=== PATIENT | male | born 1980 | race Caucasian/White ===

== ENCOUNTER → 2021-04-01 17:54 | Outpatient (CLI) | payer MEDICAID, SELFPAY | PROVIDERS: Visit Provider Family Medicine | DX: N23 Unspecified renal colic (principal) | CPT/HCPCS: 87086 ==

== ENCOUNTER → 2021-04-14 10:38 | Outpatient (CLI) | payer MEDICAID, SELFPAY ==
--- NOTE | 2021-04-14 10:38 | CT_ITS ---
PROCEDURE: CT ABDOMEN PELVIS WO CON CLINICAL INDICATION: bilateral flank pain COMPARISON: No exams were available for comparison TECHNIQUE: Axial images obtained with sagittal and coronal reformats. All CT scans at the facility use one or more dose reduction, viz: automated exposure control, ma/kV adjustment per patient size (including targeted exams where dose is matched to indication, i.e. head), or iterative reconstruction technique. FINDINGS: LOWER THORAX: No acute finding ABDOMEN & PELVIS: The liver, adrenal glands, and pancreas has an unremarkable appearance. There has been a prior cholecystectomy. A nonspecific hypodensity is present in the inferior aspect of the spleen at 12 mm. No renal or ureteral calculi. No hydronephrosis. No intestinal obstruction or free air. Prior appendectomy. No evidence of diverticulitis. No acute bony findings. IMPRESSION: No acute finding. Nonspecific hypodense nodule along the inferior aspect of the spleen. This could be due to small hemangioma. Six-month follow-up without and with contrast or MRI with hemangioma protocol may confirm short term stability. Dictated by: Vipul Randolph MD 04/15/2021 10:51 Vipul Randolph MD in OV 04/15/2021 10:51
== END ==
PROVIDERS: PCP Family Medicine; Visit Provider Family Medicine
DX: R10.9 Unspecified abdominal pain (principal)
CPT/HCPCS: 74176

== ENCOUNTER → 2021-04-21 14:44 | Outpatient (CLI) | payer MEDICAID, SELFPAY ==
[2021-04-21 15:11] LABS: HCG Qualitative, Serum Negative (Negative)
[2021-04-25 08:40] LABS: HSV 2 IgG, Type Spec <0.91 index (0.00-0.90)
[2021-04-25 22:07] LABS: Neisseria gonorrhoeae, NAA Negative (Negative)
[2021-04-26 06:19] LABS: HIV Screen 4th Generation wRfx Non Reactive (Non Reactive); Hep A Ab, IgM Negative (Negative); Hepatitis B Core Antibody IgM Negative (Negative); Hepatitis B Surface Antigen Negative (Negative); Hepatitis C Antibody >11.0 s/co ratio (0.0-0.9)
[2021-04-26 10:25] LABS: Rapid Plasma Reagin Ab Titer Non Reactive (NonRea<1:1)
== END ==
PROVIDERS: Visit Provider Family Medicine
DX: B00.9 Herpesviral infection, unspecified (principal)
CPT/HCPCS: 80074; 84703; 86592; 86695; 86703; 86790; 87491; 87591; G0432

== ENCOUNTER → 2021-12-02 10:06 | Outpatient (CLI) | payer MEDICAID, SELFPAY ==
[2021-12-02 18:51] LABS: Adenovirus,PCR Not Detected (NotDetected); Bordetella Pertussis Not Detected (NotDetected); Chlamydophila Pneumoniae, PCR Not Detected (NotDetected); Coronavirus 19, PCR Not Detected (NotDetected); Coronavirus 229E Not Detected (NotDetected); Coronavirus NL63 Not Detected (NotDetected); Coronavirus OC43 Not Detected (NotDetected); Coronovirus HKU1,PCR Not Detected (NotDetected); Human Metapneumovirus Not Detected (NotDetected); Influenza A, PCR Not Detected (NotDetected); Influenza AH1, 2009 Not Detected (NotDetected); Influenza AH1, PCR Not Detected (NotDetected); Influenza AH3,PCR Not Detected (NotDetected); Influenza B, PCR Not Detected (NotDetected); MANUAL DIFFERENTIAL MANUAL DIFFERENTIAL (MANUAL DIFF); Mycoplasma Pneumoniae, PCR Not Detected (NotDetected); Parainfluenza 1, PCR Not Detected (NotDetected); Parainfluenza 2, PCR Not Detected (NotDetected); Parainfluenza 3, PCR Not Detected (NotDetected); Parainfluenza 4, PCR Not Detected (NotDetected); Respiratory Syncytial Virus Not Detected (NotDetected); Rhinovirus/Enterovirus Not Detected (NotDetected)
[2021-12-02 19:02] LABS: Basophils # 0.1 K/mm3 (0-0.2); Basophils % 0.8 % (0.1-2.0); Eosinophils # 0.2 K/mm3 (0.0-0.4); Eosinophils % 2.4 % (0.1-12.0); Hemoglobin 12.7 g/dL (14.1-18.0); Lymphocytes # 3.5 K/mm3 (0.7-4.5); Lymphocytes % 44.7 % (10-50); Mean Corpuscular HGB Conc 32.6 g/dL (31.8-35.4); Mean Corpuscular Hemoglobin 30.2 pg (27.0-31.2); Mean Corpuscular Volume 92.5 fl (80-94); Mean Platelet Volume 9.5 fl (7.4-10.4); Monocytes # 0.5 K/mm3 (0.1-1.0); Monocytes % 6.8 % (1.7-9.3); Neutrophils # 3.6 K/mm3 (1.8-7.8); Neutrophils % 45.4 % (37.0-80.0); Platelet Count 214 K/mm3 (142-424); Red Blood Count 4.21 M/mm3 (4.60-6.20); Red Cell Distribution Width 13.8 % (11.5-17.5); White Blood Count 7.9 K/mm3 (4.8-10.8)
[2021-12-02 19:49] LABS: Eosinophils % 2 % (0-3); Lymphocytes % 43 % (10-50); Monocytes % 6 % (2-9); Neutrophils % 48 % (42-76); Platelet Estimate Normal; RBC Morphology Normal; Total Cells Counted 100
[2021-12-04 10:08] LABS: Antistreptolysin O Ab 34.1 IU/mL (0.0-200.0)
== END ==
PROVIDERS: PCP Family Medicine; Visit Provider Family Medicine
DX: J02.9 Acute pharyngitis, unspecified (principal); R05.1 Acute cough; R09.89 Other specified symptoms and signs involving the circulatory and respiratory systems; Z20.822 Contact with and (suspected) exposure to COVID-19
CPT/HCPCS: 85007; 85014; 85018; 85048; 85049; 86060; 87581; 87632; 87798; C9803; U0003; U0005

== ENCOUNTER 2022-03-25 11:46 | Emergency (ER) | payer MEDICAID, SELFPAY ==
[2022-03-25 13:40] VITALS: BP 121/75; PULSE 65; RESP 18; TEMP 36.6; O2SAT 98; BMI 27.4
--- NOTE | 2022-03-25 14:16 | EXP.UTC ---
Discharge Plan Disposition Patient Disposition: Home, Self-Care Condition: Good Prescriptions Prescriptions: New guaifenesin [Mucinex] 600 mg tablet extended release 12hr 600 mg PO BID PRN (Reason: cough) Qty: 20 0RF azithromycin [Zithromax Z-Daniel] 250 mg tablet See Rx Instructions .ROUTE .COMPLEX 5 Days Qty: 6 0RF Rx Instructions: For 250 mg dose pack: take 500 mg today (day 1), then 250 mg for 4 days (days 2-5) prednisone [prednisone] 20 mg tablet 20 mg PO BID 5 Days Qty: 10 0RF No Action clindamycin phosphate 1 % gel 1 applic topical BID Qty: 60 10RF prednisone 20 mg tablet 20 mg PO DAILY PRN (Reason: rash) Qty: 20 1RF ropinirole 2 mg tablet 2 mg PO HS Qty: 60 4RF Rx Instructions: administer 1-3 hours before bedtime for restless leg fluticasone propionate 50 mcg/actuation spray,suspension 1 spray NS DAILY Qty: 16 2RF Rx Instructions: administer into each nostril fexofenadine [Allergy Relief (fexofenadine)] 180 mg tablet 180 mg PO DAILY Qty: 30 2RF lisinopril 20 mg tablet 20 mg PO DAILY Qty: 90 3RF trazodone 150 mg tablet 150 mg PO HS venlafaxine 37.5 mg tablet 37.5 mg PO DAILY paliperidone 9 mg tablet extended release 24hr 9 mg PO DAILY divalproex 500 mg tablet extended release 24 hr See Rx Instructions .ROUTE .COMPLEX Qty: 60 2RF Dose Instruction: TAKE 1 TABLET BY MOUTH TWICE DAILY Rx Instructions: TAKE 1 TABLET BY MOUTH TWICE DAILY Referrals Follow up/Referrals: Yves Gill MD [Primary Care Provider] - See instructions Clinical Impressions Clinical Impression: Sinusitis, Bronchitis Instructions Patient Instructions: DI for Sinusitis, Sinusitis, Acute Bronchitis Discharge ED Provider: Casie Carrington [facility] HPI General Stated complaint: cough, congestion, runny nose Mode of Arrival: Ambulatory Source of Information: Patient Limitations: No Limitations Time Seen by Provider: 03/25/22 14:16 Description of Symptoms (Recalled from Triage Doc. by RN): PATIENT C/O CHEST CONGESTION, RUNNY NOSE, AND COUGH X 10 DAYS HEENT Symptoms (Recalled from RN notes): Yes Resp Symptoms (Recalled from RN notes): Yes Skin Symptoms (Recalled from RN notes): No MS Symptoms (Recalled from RN notes): No Functional Status (Recalled from RN notes): WNL History of Present Illness Provider Complaint: Patient states that he has been having cough, sinus congestion and pressure along with chest congestion and at times productive cough States that he has been sick about 10 days and not got any better so he came in Related Data Home Medications Medication Instructions Recorded Confirmed paliperidone 9 mg tablet,extended 9 mg PO DAILY 05/26/20 12/29/21 release 24 hr trazodone 150 mg tablet 150 mg PO HS 05/26/20 12/29/21 venlafaxine 37.5 mg tablet 37.5 mg PO DAILY 05/26/20 12/29/21 Previous Rx's Medication Instructions Recorded divalproex 500 mg tablet,extended See Rx Instructions .Route 08/20/20 release 24 hr .COMPLEX #60 tabs lisinopril 20 mg tablet 20 mg PO DAILY #90 tabs 10/04/21 fexofenadine 180 mg tablet 180 mg PO DAILY #30 tabs 12/06/21 (Allergy Relief (fexofenadine)) fluticasone propionate 50 1 spray intranasal DAILY allergic 12/06/21 mcg/actuation nasal rhinitis #16 grams spray,suspension clindamycin phosphate 1 % topical 1 applic topical BID #60 grams 12/29/21 gel prednisone 20 mg tablet 20 mg PO DAILY PRN rash #20 tabs 12/29/21 ropinirole 2 mg tablet 2 mg PO HS #60 tabs 12/29/21 azithromycin 250 mg tablet See Rx Instructions PO .COMPLEX 5 03/25/22 (Zithromax Z-Daniel) days #6 tabs guaifenesin 600 mg tablet, 600 mg PO BID PRN cough #20 tabs 03/25/22 extended release 12 hr (Mucinex) prednisone 20 mg tablet 20 mg PO BID 5 days #10 tabs 03/25/22 Allergies Allergy/AdvReac Type Severity Reaction Status Date / Time amoxicillin AdvReac Severe Rash Verified 12/29/21 09:30 Worker's Comp Is this a
[2022-03-25 14:33] VITALS: BP 121/75; PULSE 65; RESP 18; TEMP 36.6; O2SAT 98
== END 2022-03-25 14:51 | disposition home or self-care (01) ==
PROVIDERS: Emergency Provider Nurse Practitioner; PCP Family Medicine
DX: J40 Bronchitis, not specified as acute or chronic (principal); F32.9 Major depressive disorder, single episode, unspecified
CPT/HCPCS: 99212; G0463

== ENCOUNTER → 2022-05-01 10:10 | Outpatient (CLI) | payer MEDICAID, SELFPAY ==
[2022-05-01 13:21] LABS: Coronavirus 19, PCR Not Detected (NotDetected); Influenza A, PCR Not Detected (NotDetected); Influenza B, PCR Not Detected (NotDetected)
== END ==
PROVIDERS: PCP Family Medicine; Visit Provider Family Medicine
DX: R05.9 Cough, unspecified (principal)
CPT/HCPCS: C9803; U0003; U0005

== ENCOUNTER 2022-05-30 10:01 | Day surgery (SDC) | payer MEDICAID, SELFPAY ==
[2022-05-29 10:10] VITALS: BMI 29.0
[2022-05-30 10:20] VITALS: BP 119/72; PULSE 72; RESP 18; TEMP 36.3; O2SAT 95
[2022-05-30 11:39] VITALS: O2SAT 99
--- NOTE | 2022-05-30 11:55 | EXP.ANES.CKL ---
[facility] Disclaimer: The information contained in this section may have been updated after the patient was seen, as this information can be updated by other users. Medical History Depression Eczema Hypertension Seizure disorder Surgical History History of appendectomy History of cholecystectomy Family History Other Colon cancer Family history of asthma Family history of cancer Family history of diabetes mellitus type II Family history of stroke Social History Smoking Status: Former smoker quit date: 06/01/18 alcohol intake: former substance use type: former substance user and methamphetamine current occupational status: employed Travel in the last 8 weeks: None household members: family housing: house lives independently: Yes marital status: education level: high school caffeine: Yes special kyaw needs: No agree to transfusion: No do you feel safe at home: Yes victim of physical abuse: No victim of emotional abuse: No victim of sexual abuse: No would you like helpful sources: No [facility] Anesthesia Checklist Patient Identification Patient Identification: Arm Band Structural Data Admitted From: Home Planned Operative Procedure/s: colonoscopy Consent for Planned Operative Procedure(s) Verified: Yes Verified Documents: Surgical Consent and History and Physical NPO Status Verified Time NPO: 00:00 Additional verifications Anesthesia Reactions: No Airway Assessment C-Spine Mobility Assessed: Yes TMJ Mobility Assessed: Yes Neurological Assessment Level of Consciousness: Awake and Alert Anesthesia Plan Anesthesia Risk discussed: Yes Anesthesia Plan: Verified ASA Class: II Anesthesia Type: MAC
[2022-05-30 12:20] VITALS: BP 84/42; PULSE 56; RESP 16; TEMP 36.5; O2SAT 95
--- NOTE | 2022-05-30 12:20 | HMH.SCOPE ---
Procedure: Date: 05/30/22 Patient Date of :: 1980 Procedure Performed:: Colonoscopy with polypectomy Indications:: Family history of colon cancer Performing Provider:: Harvinder Sanchez MD Referring Provider:: . Sedation:: Monitored anesthesia care Procedure:: After informed consent was obtained the patient was taken to the endoscopy suite. Sedation ensued after the patient was transferred to the left lateral decubitus position. Pulse, blood pressure, and oxygen saturation were monitored throughout the procedure. Digital rectal exam revealed no significant abnormality. The colonoscope was placed in position. The entire colon was evaluated. The colonoscope was carefully removed and the patient was transferred to recovery in stable condition. Please see findings and specimens below for detail. Findings:: Bowel preparation [id number] Moderate spasticity/lack of relaxation Polyp (see specimens) Specimens:: Large complex pedunculated polyp at 60 cm (hot snare) Recommendations:: Timing of repeat colonoscopy is pending pathology but likely be around 1-2 years secondary to size/nature of polyp, limited bowel preparation, spasticity/lack of relaxation, and significant family history. Complications:: No immediate Estimated blood obtained (mL): 1
[2022-05-30 12:30] VITALS: BP 101/51; PULSE 62; RESP 17; O2SAT 96
[2022-05-30 12:40] VITALS: BP 111/71; PULSE 61; RESP 16; O2SAT 98
[2022-05-30 12:50] VITALS: BP 111/71; PULSE 62; RESP 16; TEMP 36.7; O2SAT 97
== END 2022-05-30 12:50 | disposition home or self-care (01) ==
PROVIDERS: PCP Family Medicine; Visit Provider Surgery
PROC: 0DJD8ZZ Inspection of Lower Intestinal Tract, Via Natural or Artificial Opening Endoscopic (ICD-10-PCS; CPT 45385; principal; 2022-05-30 11:30)
DX: Z12.11 Encounter for screening for malignant neoplasm of colon (principal); Z80.0 Family history of malignant neoplasm of digestive organs; D12.6 Benign neoplasm of colon, unspecified; Z79.899 Other long term (current) drug therapy
CPT/HCPCS: 45385

== ENCOUNTER → 2022-06-20 16:23 | Outpatient (CLI) | payer MEDICAID, SELFPAY ==
[2022-06-20 16:05] LABS: Chol/HDL Ratio 3.8 (1-3.5); Cholesterol 234 mg/dl (140-200); HDL Cholesterol 62 mg/dl (40-60); Triglycerides 249 mg/dl (30-150); VLDL Cholesterol 50 mg/dL (0-40)
== END ==
PROVIDERS: PCP Family Medicine; Visit Provider Family Medicine
DX: D12.6 Benign neoplasm of colon, unspecified (principal)
CPT/HCPCS: 80061

== ENCOUNTER → 2022-09-11 23:28 | Outpatient (CLI) | payer MEDICAID, SELFPAY ==
[2022-09-11 18:20] LABS: Adenovirus,PCR Not Detected (NotDetected); Bordetella Pertussis Not Detected (NotDetected); Chlamydophila Pneumoniae, PCR Not Detected (NotDetected); Coronavirus 19, PCR Not Detected (NotDetected); Coronavirus 229E Not Detected (NotDetected); Coronavirus NL63 Not Detected (NotDetected); Coronavirus OC43 Not Detected (NotDetected); Coronovirus HKU1,PCR Not Detected (NotDetected); Human Metapneumovirus Not Detected (NotDetected); Influenza A, PCR Not Detected (NotDetected); Influenza AH1, 2009 Not Detected (NotDetected); Influenza AH1, PCR Not Detected (NotDetected); Influenza AH3,PCR Not Detected (NotDetected); Influenza B, PCR Not Detected (NotDetected); Mycoplasma Pneumoniae, PCR Not Detected (NotDetected); Parainfluenza 1, PCR Not Detected (NotDetected); Parainfluenza 2, PCR Not Detected (NotDetected); Parainfluenza 3, PCR Not Detected (NotDetected); Parainfluenza 4, PCR Not Detected (NotDetected); Respiratory Syncytial Virus Not Detected (NotDetected); Rhinovirus/Enterovirus Not Detected (NotDetected)
== END ==
PROVIDERS: PCP Family Medicine; Visit Provider Family Medicine
DX: R53.83 Other fatigue (principal); R50.9 Fever, unspecified; J02.9 Acute pharyngitis, unspecified
CPT/HCPCS: 87581; 87632; 87635; 87798; C9803; U0003; U0005

== ENCOUNTER → 2023-01-12 11:15 | Outpatient (CLI) | payer MEDICAID, SELFPAY ==
[2023-01-12 18:02] LABS: Alanine Aminotransferase 35 U/L (12-78); Albumin/Globulin Ratio 1.4 (1.1-1.8); Alkaline Phosphatase 74 U/L (38-126); Anion Gap 18.1 mEq/L (5-15); Aspartate Amino Transferase 31 U/L (17-59); Bilirubin,Total 0.7 mg/dl (0.2-1.3); Blood Urea Nitrogen 16 mg/dl (9-20); Calcium 9.7 mg/dl (8.4-10.2); Carbon Dioxide 25 mmol/L (22.0-30.0); Chloride 101 mmol/L (98-107); Chol/HDL Ratio 3.9 (1-3.5); Cholesterol 177 mg/dl (140-200); Estimated Glomerular Filt Rate 106 ml/min (>60); GFR (African American) 128 ML/MIN (>60); Globulin 3.5 g/dL (1.3-3.2); Glucose 92 mg/dl (74-100); HDL Cholesterol 45 mg/dl (40-60); Potassium 4.1 mmoL/L (3.5-5.1); Sodium 140 mmol/L (136-145); Total Protein,Serum 8.5 g/dl (6.3-8.2); Triglycerides 98 mg/dl (30-150); VLDL Cholesterol 20 mg/dL (0-40)
[2023-01-12 18:05] LABS: Basophils % 0.3 % (0.1-2.0); Eosinophils % 0.4 % (0.1-12.0); Hematocrit 43.6 % (42.0-52.0); Hemoglobin 14.4 g/dL (14.1-18.0); Lymphocytes # 2.6 K/mm3 (0.7-4.5); Lymphocytes % 29.2 % (10-50); Mean Corpuscular Hemoglobin 28.5 pg (27.0-31.2); Mean Corpuscular Volume 86.3 fl (80-94); Mean Platelet Volume 9.7 fl (7.4-10.4); Monocytes # 0.5 K/mm3 (0.1-1.0); Neutrophils # 5.6 K/mm3 (1.8-7.8); Neutrophils % 64.1 % (37.0-80.0); Platelet Count 265 K/mm3 (142-424); Red Blood Count 5.05 M/mm3 (4.60-6.20); Red Cell Distribution Width 14.4 % (11.5-17.5); White Blood Count 8.8 K/mm3 (4.8-10.8)
[2023-01-12 18:13] LABS: Direct LDL Cholesterol 101.28 mg/dL (100-129)
[2023-01-12 18:24] LABS: Hemoglobin A1C 5.2 % (4.0-6.0)
[2023-01-14 11:18] LABS: Testosterone,Total 489 ng/dL (264-916)
== END ==
PROVIDERS: PCP Family Medicine; Visit Provider Family Medicine
DX: Z13.1 Encounter for screening for diabetes mellitus (principal); I10 Essential (primary) hypertension; R63.1 Polydipsia; R53.83 Other fatigue; Z83.3 Family history of diabetes mellitus; Z79.899 Other long term (current) drug therapy
CPT/HCPCS: 80053; 80061; 83036; 84403; 85025

== ENCOUNTER 2024-11-25 06:18 | Day surgery (SDC) | payer MEDICAID, SELFPAY ==
[2024-11-20 15:09] VITALS: BMI 29.0
[2024-11-25 06:32] VITALS: BMI 29.0
[2024-11-25 06:35] VITALS: BP 122/78; PULSE 68; RESP 18; TEMP 36.1; O2SAT 94
--- NOTE | 2024-11-25 06:46 | EXP.GEN.HP ---
HPI HPI HPI: Is a 44-year-old gentleman who presents for colonoscopy. Colonoscopy in April 2022 was somewhat complicated by [id number] bowel preparation and moderate lack of relaxation. A large complex pedunculated tubular adenoma at 60 cm was excised. [facility] Disclaimer: The information contained in this section may have been updated after the patient was seen, as this information can be updated by other users. Medical History (Updated 11/25/24 @ 06:49 by Harvinder Sanchez MD) Tubular adenoma of colon Seizure disorder Eczema Hypertension Depression Surgical History (Updated 11/25/24 @ 06:49 by Harvinder Sanchez MD) History of laparoscopic cholecystectomy History of laparoscopic appendectomy Family History Other Colon cancer Family history of asthma Family history of cancer Family history of diabetes mellitus type II Family history of stroke Social History (Updated 11/25/24 @ 06:36 by Shania Owens RN) Smoking Status: Former smoker tobacco type: cigarettes packs per day: 1 alcohol intake: former substance use type: former substance user and methamphetamine current occupational status: employed Travel in the last 8 weeks?: None household members: family housing: house lives independently: Yes marital status: education level: high school caffeine: Yes special kyaw needs: No agree to transfusion: No do you feel safe at home: Yes victim of physical abuse: No victim of emotional abuse: No victim of sexual abuse: No would you like helpful sources: No Have you lived/traveled outside [place] in past 30 days?: No Contact w/someone who lives/traveled outside US past 30 days?: No Exposure to someone with infectious disease in past 14 days?: No Do you have a fever (greater than 100.4 F or 38 C)?: No Have you tested positive for COVID-19?: No Exposed to someone with COVID-19 in past 14 days?: No Do you have a sore throat?: No Do you have a cough?: No Do you have any weakness?: No Are you experiencing any nausea/vomitting?: No Do you have any diarrhea?: No Are you experiencing any unusual bleeding?: No Do you have any muscle aches/pain?: No Do you have any abdominal pain?: No Are you experiencing loss of taste or smell?: No Other Medical History Have you received the Pneumonia Vaccine: No Review of Systems Review of Systems Review of systems:: pertinent systems reviewed and negative unless documented below Meds Home Medications and Allergies Home Medications ?Medication ?Instructions ?Recorded ?Confirmed ?Type trazodone 150 mg tablet 150 mg PO HS sleep 05/26/20 11/20/24 History buprenorphine 8 mg-naloxone 2 mg 1 tab sublingual DAILY 09/22/22 11/20/24 History sublingual tablet lisinopril 20 mg tablet 20 mg PO DAILY #90 tabs 01/12/23 11/20/24 Rx aripiprazole 10 mg tablet 10 mg PO DAILY 07/20/23 11/20/24 History fluticasone propionate 50 See Rx Instructions .Route 11/05/24 11/20/24 Rx mcg/actuation nasal .COMPLEX #16 mL spray,suspension bupropion HCl 150 mg 24 hr tablet, 150 mg PO DAILY 11/20/24 11/20/24 History extended release New Prescriptions to Start Prescriptions: Allergies Allergy/AdvReac Type Severity Reaction Status Date / Time amoxicillin AdvReac Severe Rash Verified 11/25/24 06:48 Exam Data for Last 24 hours Vital signs and Labs for Last 24 Hours: Temp Pulse Resp BP Pulse Ox O2 Del Method 97.0 F L 68 18 122/78 94 L Room Air 11/25/24 06:35 11/25/24 06:35 11/25/24 06:35 11/25/24 06:35 11/25/24 06:35 11/25/24 06:35 I & O for Last 24 hours: Intake & Output 11/22/24 11/23/24 11/24/24 11/25/24 11:59 11:59 11:59 11:59 Weight 220 lb Constitutional Constitutional: no acute distress *Routine HEENT Exam Head: Present normocephalic Eye: Present EOMI ENT: Present mucous membranes moist *Routine Neck Exam Neck: Present full ROM *Routine Respiratory Exam Respiratory: Absent respiratory distress *Routine Cardiovascular Exam Cardiovascular: Absent tachycardia *Routine Abdominal Exam Abdominal: Present soft *Routine Rectal Exam Rectal:: deferred *Routine Genitalia Exam Genitalia:: deferred *Routine Extremities Exam Extremities: Present full ROM *Routine Skin Exam Skin: Absent erythema *Routine Neurological Exam Neurological: Present alert Assessment and Plan *Assessment and plan (1) History of colon polyps: Status: Acute Category: Medical Code(s): Z86.0100 - Personal history of colon polyps, unspecified Plan: Colonoscopy today I have discussed the risks and benefits including, but not limited to: Bleeding Infection Damage to surrounding tissue Inherent risks of sedation The patient agrees to proceed.
[2024-11-25] MEDS: LACTATED RINGERS 1000ML 1,000 ML 25 ML IV (06:47)
--- NOTE | 2024-11-25 06:50 | HMH.SCOPE ---
Procedure: Date: 11/25/24 Patient Date of :: 1980 Procedure Performed:: Colonoscopy with polypectomy by means other than snare Indications:: History of colon polyps Note: Colonoscopy in April 2022 was somewhat complicated by [id number] bowel preparation and moderate lack of relaxation. A large complex pedunculated tubular adenoma at 60 cm was excised. Performing Provider:: Harvinder Sanchez MD Referring Provider:: . Sedation:: Monitored anesthesia care Procedure:: After informed consent was obtained the patient was taken to the endoscopy suite. Sedation ensued after the patient was transferred to the left lateral decubitus position. Pulse, blood pressure, and oxygen saturation were monitored throughout the procedure. Digital rectal exam revealed no significant abnormality. The colonoscope was placed in position. The entire colon was evaluated. The colonoscope was carefully removed and the patient was transferred to recovery in stable condition. Please see findings and specimens below for detail. Findings:: Bowel preparation moderate Moderate spasticity/lack of relaxation Hemorrhoidal tags Small polyp at 45 cm Specimens:: Polyp at 45 cm (cold biopsy forceps) Recommendations:: Timing of repeat colonoscopy is pending pathology will likely be between 3-5 years secondary to history of significant polyp, polyp on repeat evaluation, limited bowel preparation, and lack of relaxation. Complications:: No immediate Estimated blood obtained (mL): 1 Colonoscopy Component Colonoscopy Component Was a colonoscopy performed during today's procedure?: Yes Recommended follow up colonoscopy of at least 10 years?: No If no, follow up colonoscopy recommended in ___ years?: (See above) Reason for not recommending >/= 10 yr follow-up interval?: (See above)
--- NOTE | 2024-11-25 07:05 | EXP.ANES.CKL ---
[facility] Disclaimer: The information contained in this section may have been updated after the patient was seen, as this information can be updated by other users. Medical History Tubular adenoma of colon Seizure disorder Eczema Hypertension Depression Surgical History History of laparoscopic cholecystectomy History of laparoscopic appendectomy Family History Other Colon cancer Family history of asthma Family history of cancer Family history of diabetes mellitus type II Family history of stroke Social History Smoking Status: Former smoker tobacco type: cigarettes packs per day: 1 alcohol intake: former substance use type: former substance user and methamphetamine current occupational status: employed Travel in the last 8 weeks?: None household members: family housing: house lives independently: Yes marital status: education level: high school caffeine: Yes special kyaw needs: No agree to transfusion: No do you feel safe at home: Yes victim of physical abuse: No victim of emotional abuse: No victim of sexual abuse: No would you like helpful sources: No Have you lived/traveled outside US in past 30 days?: No Contact w/someone who lives/traveled outside US past 30 days?: No Exposure to someone with infectious disease in past 14 days?: No Do you have a fever (greater than 100.4 F or 38 C)?: No Have you tested positive for COVID-19?: No Exposed to someone with COVID-19 in past 14 days?: No Do you have a sore throat?: No Do you have a cough?: No Do you have any weakness?: No Are you experiencing any nausea/vomitting?: No Do you have any diarrhea?: No Are you experiencing any unusual bleeding?: No Do you have any muscle aches/pain?: No Do you have any abdominal pain?: No Are you experiencing loss of taste or smell?: No [facility] Anesthesia Checklist Patient Identification Patient Identification: Arm Band and Verbal (Name & ) Structural Data Admitted From: Home Planned Operative Procedure/s: colonscopy Consent for Planned Operative Procedure(s) Verified: Yes Verified Documents: Surgical Consent and History and Physical NPO Status Verified Time NPO: 00:00 Additional verifications Anesthesia Reactions: No Previous Colonoscopy: Yes Airway Assessment Mallampati Score:: Class II Dentition: Good Dentition Neurological Assessment Level of Consciousness: Awake, Alert and Appropriate Hx Seizures: Yes Numbness or tingling in extremities: No Anesthesia Plan Anesthesia Risk discussed: Yes Anesthesia Plan: Verified ASA Class: II Anesthesia Type: MAC
[2024-11-25 07:42] VITALS: BP 97/60; PULSE 59; RESP 16; TEMP 36.1; O2SAT 95
[2024-11-25 07:52] VITALS: BP 95/60; PULSE 61; RESP 16; O2SAT 97
[2024-11-25 08:02] VITALS: BP 96/61; PULSE 64; RESP 16; O2SAT 97
[2024-11-25 08:12] VITALS: BP 104/67; PULSE 62; RESP 16; TEMP 36.1; O2SAT 98
== END 2024-11-25 08:15 | disposition home or self-care (01) ==
PROVIDERS: PCP Family Medicine; Visit Provider Surgery
PROC: 0DJD8ZZ Inspection of Lower Intestinal Tract, Via Natural or Artificial Opening Endoscopic (ICD-10-PCS; CPT 45380; principal; 2024-11-25 07:30)
DX: D12.6 Benign neoplasm of colon, unspecified (principal); Z86.0101 Personal history of adenomatous and serrated colon polyps; I10 Essential (primary) hypertension; G40.909 Epilepsy, unspecified, not intractable, without status epilepticus; Z80.0 Family history of malignant neoplasm of digestive organs; Z87.891 Personal history of nicotine dependence; Z88.0 Allergy status to penicillin; Z79.899 Other long term (current) drug therapy
CPT/HCPCS: 45380; J2003; J2704; J7120

== ENCOUNTER 2025-02-03 13:00 | Outpatient (CLI) | payer MEDICAID, SELFPAY ==
--- OUTSIDE RECORDS SUMMARY | 2020-05-27 17:22 | XMS_ITS | Encounter Summary ---
Author Organization [place] [address] Care Team Providers Care Receiving Inspector Name Role Phone Madhu Schaefer MD Unavailable [phone] [facility] Primary Care Provider [phone] Encounter Details Date Type Department Care Team (Latest Contact Info) Description 05/27/2020 4:[address] [facility] Hospital Encounter [facility] Referral Lab [address] [place] [id number] Power Leung, ALYSIA [address] [place] [address] Encounter for therapeutic drug level monitoring Social History Tobacco Use Types Packs/Day Years Used Date Smoking Tobacco: Former Cigarettes 1 15 0 04/30/1996 - 04/30/2011 Smokeless Tobacco: Never Alcohol Use Standard Drinks/Week Comments No 0 (1 standard drink = 0.6 oz pur e alcohol) Sexually Active Control Partners Comments Yes Other-see comments Female None Sex and Gender Information Value Date Recorded Sex Assigned at Not on file Legal Sex Male 11:43 AM EDT Gender Identity Not on file Sexual Orientation Not on file COVID-19 Exposure Response Date Recorded In the last 10 days, have yo u been in contact with someone who was confirmed or suspected to have Coronavirus/COVID-19? No / Unsure 07/22/2022 1:09 PM EDT documented as of this encounter Functional Status * Is the person deaf or does he/she have serious difficulty hearing? Answer Date of Assessment Author No 12/19/2018 12:23 PM EDMerry Powers RN * Is the person blind or does he/she have serious difficulty seeing even when wearing glasses? Answer Date of Assessment Author No 12/19/2018 12:23 PM EDMerry Powers RN * Does this person have serious difficulty walking or climbing stairs? Answer Date of Assessment Author No 12/19/2018 12:23 PM Merry Riggs RN * Does this person have difficulty dressing or bathing? Answer Date of Assessment Author No 12/19/2018 12:23 PM EDMerry Powers RN * Because of a physical, mental or emotional condition, does this person have difficulty doing errands alone such as visiting a doctor's office or shopping? Answer Date of Assessment Author No 12/19/2018 12:23 PM Merry Riggs RN * Suicide Severity Rating Answer Date of Assessment Author No Risk 07/07/2024 1:59 PM Libertad Nation RN * [place] Suicide Severity Rating Scale (Q shift for moderate and high) Question Answer Date of Assessment Author 1. In the past month, have y ou wished you were or wished you could go to sleep and not wake up? 0 07/07/2024 1:59 PM Libertad Nation RN 2. In the past month, have y ou actually had any thoughts of killing yourself? (If no, skip to question 6) 0 07/07/2024 1:59 PM Libertad Nation RN 6. Have you ever done anythi ng, started to do anything, or prepared to do anything to end your life? 0 07/07/2024 1:59 PM ALISIAT Libertad Mcdonnell RN documented as of this encounter Mental Status * Because of a physical, mental or emotional condition, does this person have serious difficulty concentrating, remembering or making decisions? Answer Entry Date Author No 12/19/2018 12:23 PM Merry Riggs RN documented in this encounter Plan of Treatment Not on file documented as of this encounter Goals Goal Patient Goal Type Associated Problems Recent Progress Patient-Stated? Author Blood Pressure < 140/90 Blood Pressure 125/79(2024 2:00 PM EDT) No Rain Jameson, CARLEE Maintain a healthy diet, exercise regularly and maintain an ideal body weight General No Rain Jameson, RN Stay Tobacco Free Lifestyle No Rain Jameson RN documented as of this encounter Results * (ABNORMAL) VALPROIC ACID LEVEL (05/31/2020 1:11 PM EST) Pathologist [facility] Valproic <2.8(L) 50.0 - 100.0 mcg/mL 05/31/2020 5:31 PM EST [facility] Blood Venipuncture / Unknown 05/31/2020 1:11 PM EST 05/31/2020 1:11 PM EST Power Leung ANALYTICS CONSULTANT CHEMISTRY ORDERABLES F inal Result Performing Organization Address [facility] Co de Phone Number [employer] [address] [place] [address] , [place] [address] * (ABNORMAL) PROLACTIN LEVEL (05/31/2020 1:11 PM EST) [facility] Prolactin 21.00(H) 4.04 - 15.20 ng/mL 05/31/2020 5:25 PM EST [facility] [employer] Blood Venipuncture / Unknown 05/31/2020 1:11 PM EST 05/31/2020 1:11 PM EST Narrative [facility] [employer] - 05/31/2020 5:25 PM EST Ingestion of matthias doses of biotin (>5 mg/day) taken within 8 hours of drawing blood sample can interfere with this immunoassay test. Power Leung NP CHEMISTRY ORDERABLES F inal Result Performing Organization Address [facility] Co de Phone Number [facility] [employer] [address] [place] [address] , [place] [address] * HEMOGLOBIN A1C (05/31/2020 1:11 PM EST) Pathologist [facility] Hgb A1C 5.5 4.2 - 5.6 % 05/31/2020 5:34 PM EST [facility] [employer], [place] Est. Avg Glucose 111 mg/dL 05/31/2020 5:34 PM EST [facility] Blood Venipuncture / Unknown 05/31/2020 1:11 PM EST 05/31/2020 1:11 PM EST Narrative [facility] - 05/31/2020 5:34 PM EST REFERENCE RANGE: Normal: 4.0-5.6% Pre-diabetes: 5.7-6.4% Provisional diagnosis of diabetes: >6.4% Hgb F>10% and anything which shortens red cell survival, such as hemolytic anemia, or unstable hemoglobin variants such as HbSS, HbSC, or HbCC, will lower the HbA1c value associated with a given level of glycemic control. us Power Leung NP CHEMISTRY ORDERABLES F inal Result [facility] [address] [facility] , [place] [address] * RENAL FUNCTION PANEL (05/31/2020 1:11 PM EST) Sodium 141 136 - 145 mmol/L 05/31/2020 5:25 PM EST [facility] Potassium 4.4 3.5 - 5.0 mmol/L 05/31/2020 5:25 PM EST [facility] Chloride 103 98 - 107 mmol/L 05/31/2020 5:25 PM EST [facility] Total CO2 28 22 - 29 mmol/L 05/31/2020 5:25 PM EST [facility] Anion Gap 10 7 - 16 mmol/L 05/31/2020 5:25 PM EST [facility] Calcium 10.3 8.6 - 10.4 mg/dL 05/31/2020 5:25 PM EST [facility] Glucose Lvl 95 74 - 100 mg/dL 05/31/2020 5:25 PM EST [facility] BUN 10 6 - 20 mg/dL 05/31/2020 5:25 PM EST [facility] Creatinine 1.03 0.67 - 1.30 mg/dL 05/31/2020 5:25 PM EST [facility] Albumin 4.8 3.5 - 5.2 gm/dL 05/31/2020 5:25 PM EST [facility] Phosphorus 3.9 2.5 - 4.5 mg/dL 05/31/2020 5:25 PM EST [facility] [employer] GFR Afr Am 105 >=60 mL/min/1.7 3 m2 05/31/2020 5:25 PM EST [facility] GFR Non Afr Am 91 >=60 mL/min/1.7 3 m2 05/31/2020 5:25 PM EST [facility] Comment: This estimated GFR was calculated using CKD-EPI equation which is modified based on ethnicity for Non Americans and Americans. Both results are reported since it is not always possible to determine the patient's ethnicity. This equation should only be used for individuals 18 and older. It has not been validated for use with the elderly (>70 years), women, or in some racial or ethnic subgroups, such as Hispanics. The equation will be less accurate in people with differences in nutritional status or muscle mass. Blood Venipuncture / Unknown 05/31/2020 1:11 PM EST 05/31/2020 1:11 PM EST us Power Leung NP CHEMISTRY ORDERABLES F inal Result [facility] [address] [facility] , [address] [place] [id number] [facility] [address] [place], [place] [id number] * (ABNORMAL) CBC WITH DIFF (05/31/2020 1:11 PM EST) WBC 9.1 3.7 - 10.3 x10(3)/mcL 05/31/2020 5:07 PM EST [facility] RBC 5.47 4.60 - 6.10 x10(6)/mcL 05/31/2020 5:07 PM EST [facility] Hgb 16.4 13.7 - 17.5 g/dL 05/31/2020 5:07 PM EST [facility] Hct 47.5 40.0 - 51.0 % 05/31/2020 5:07 PM EST [facility] MCV 86.8 80.0 - 100.0 fL 05/31/2020 5:07 PM EST [facility] MCH 30.0 26.0 - 34.0 pg 05/31/2020 5:07 PM EST [facility] MCHC 34.5 30.7 - 35.5 g/dL 05/31/2020 5:07 PM EST [facility] RDW 12.4 <=14.9 % 05/31/2020 5:07 PM EST [facility] Platelet 241 155 - 369 x10(3)/mcL 05/31/2020 5:07 PM EST [facility] MPV 11.0 8.8 - 12.5 fL 05/31/2020 5:07 PM EST [facility] Neut Percent 41.5 % 05/31/2020 5:07 PM EST [facility] Comment:Neutrophils equals s egs plus bands Imm Gran% 0.2 % 05/31/2020 5:07 PM EST [facility] Comment:Automated count of m etamyelocytes, myelocytes and promyelocytes. Lymph Percent 49.8 % 05/31/2020 5:07 PM EST [facility] Pope Percent 6.7 % 05/31/2020 5:07 PM EST [facility] Eos Percent 1.1 % 05/31/2020 5:07 PM EST [facility] Baso Percent 0.7 % 05/31/2020 5:07 PM EST [facility] Neut # 3.8 1.6 - 6.1 x10(3)/mcL 05/31/2020 5:07 PM EST [facility] Comment:Neutrophils equals s egs plus bands IMMGRAN# 0.0 0.0 - 0.1 x10(3)/mcL 05/31/2020 5:07 PM EST [facility] Comment:Automated count of m etamyelocytes, myelocytes and promyelocytes. An absolute IG <0.1 is reported as 0.0. Lymph # 4.5(H) 1.2 - 3.9 x10(3)/mcL 05/31/2020 5:07 PM EST [facility] Pope # 0.6 0.3 - 0.9 x10(3)/mcL 05/31/2020 5:07 PM EST [facility] Eos# 0.1 0.0 - 0.5 x10(3)/[facility] 05/31/2020 5:07 PM EST [facility] Baso # 0.1 0.0 - 0.1 x10(3)/[facility] 05/31/2020 5:07 PM EST [facility] Blood Venipuncture / Unknown 05/31/2020 1:11 PM EST 05/31/2020 1:11 PM EST Power Leung NP HEMATOLOGY ORDERABLES Final Result Performing Organization Address [facility] Co de Phone Number [address] , [place] [address] * TSH REFLEX (05/31/2020 1:11 PM EST) TSH Reflex 2.070 0.270 - 4.200 mcIU/mL 05/31/2020 5:25 PM EST [facility] Blood Venipuncture / Unknown 05/31/2020 1:11 PM EST 05/31/2020 1:11 PM EST Narrative [facility] - 05/31/2020 5:25 PM EST Ingestion of matthias doses of biotin (>5 mg/day) taken within 8 hours of drawing blood sample can interfere with this immunoassay test. Power Leung NP CHEMISTRY ORDERABLES F inal Result Performing Organization Address [facility] de Phone Number [facility] [address] , [place] [address] * (ABNORMAL) LIPID PANEL REFLEX (05/31/2020 1:11 PM EST) Cholesterol 178 <200 mg/dL 05/31/2020 5:39 PM EST [facility] [employer] [facility] Comment: < 200 Desirable 200 - 239 Borderline High >= 240 High Triglyceride 204(H) <150 mg/dL 05/31/2020 5:39 PM EST [facility] [employer] [facility] Comment: < 150 Normal 150 - 199 Borderline High 200 - 499 High >= 500 Very High HDL 47 >=40 mg/dL 05/31/2020 5:39 PM EST [facility] Comment: > 60 Optimal 40 - 60 Acceptable < 40 Low LDL Direct 110(H) <100 mg/dL 05/31/2020 5:39 PM EST [facility] [employer] Non-HDL-C Calculated 131(H) <=129 mg/dL 05/31/2020 5:39 PM EST [employer] Comment: <130 Desirable 130-159 Above Desirable 160-189 Borderline High 190-219 High >= 220 Very High Fasting Specimen? No None 021 5:39 PM EST [facility] [employer] Comment:had pepsi at 12 pm Blood Venipuncture / Unknown 05/31/2020 1:11 PM EST 05/31/2020 1:11 PM EST us Power Leung ANALYTICS CONSULTANT CHEMISTRY ORDERABLES F inal Result [facility] [employer] [address] [facility] , [place] [address] documented in this encounter Visit Diagnoses Diagnosis Encounter for therapeutic drug level monitoring Encounter for therapeutic drug monitoring documented in this encounter Orders Lab Orders Without Results Count Last Ordered D ate First Ordered Date BASIC METABOLIC PANEL 1 05/27/2020 HEPATIC FUNCTION PANEL 1 05/27/2020 documented in this encounter Care Teams Receiving Inspector Relationship Specialty Start Date End Date [facility] [address] [place] [id number] PCP - General Clinic/Center - [facility] (ON LICENSE OF [facility]) 01/20/16 Madhu Schaefer MD Internal Medicine-Gastroenterology 09/30/12 documented as of this encounter
--- OUTSIDE RECORDS SUMMARY | 2022-07-21 14:02 | XMS_ITS | Encounter Summary ---
Author Organization [place] [address] Care Team Providers Care Rn Forensic Name Role Phone Madhu Schaefer MD Unavailable [phone] Ji Martell Primary Care Provider [phone] Encounter Details Date Type Department Care Team (Latest Contact Info) Description 07/21/2022 2:02 PM EDT Hospital Encounter [facility] Referral Lab [address] [place] [phone] Other truck terminal manager (current) drug therapy Social History Tobacco Use Types Packs/Day Years [...] of Assessment Author No 12/19/2018 12:23 PM EDT Merry Gonzalez RN * Is the person blind or does he/she have serious difficulty seeing even when wearing glasses? Answer Date of Assessment Author No 12/19/2018 12:23 PM EDT Merry Gonzalez CARLEE * Does this person have serious difficulty walking or climbing stairs? Answer Date of Assessment Author No 12/19/2018 12:23 PM EDT Merry Gonzalez RN * Does this person have difficulty dressing or bathing? Answer Date of Assessment Author No 12/19/2018 12:23 PM EDT Merry Gonzalez RN * Because of a physical, mental or emotional condition, does this person have difficulty doing errands alone such as visiting a doctor's office or shopping? Answer Date of Assessment Author No 12/19/2018 12:23 PM EDT Merry Gonzalez RN * Suicide Severity Rating Answer Date of Assessment Author No Risk 07/07/2024 1:59 PM EDT Libertad Mcdonnell RN * [place] Suicide Severity Rating Scale (Q shift for moderate and high) Question Answer Date of Assessment Author 1. In the past month, have y ou wished you were or wished you could go to sleep and not wake up? 0 07/07/2024 1:59 PM ALISIAT Libertad Mcdonnell RN 2. In the past month, have y ou actually had any thoughts of killing yourself? (If no, skip to question 6) 0 07/07/2024 1:59 PM ALISIAT Libertad Mcdonnell RN 6. Have you ever done anythi [...] Entry Date Author No 12/19/2018 12:23 PM EDT Merry Gonzalez RN documented in this encounter Plan of Treatment Not on file documented as of this encounter Goals Goal Patient Goal Type Associated Problems Recent Progress Patient-Stated? Author Blood Pressure < 140/90 Blood Pressure 125/79(2024 2:00 PM EDT) No Rain Jameson, CARLEE Maintain a healthy diet, exercise regularly and maintain an ideal body weight General No Rain Jameson, CARLEE Stay Tobacco Free Lifestyle No Rain Jameson RN documented as of this encounter Results * (ABNORMAL) COMPREHENSIVE METABOLIC PANEL (07/22/2022 1:17 PM EDT) Sodium 138 136 - 145 mmol/L 07/22/2022 3:25 PM EDT [facility] Potassium 4.2 3.5 - 5.0 mmol/L 07/22/2022 3:25 PM EDT [facility] Chloride 101 98 - 107 mmol/L 07/22/2022 3:25 PM EDT [facility] Total CO2 28 22 - 29 mmol/L 07/22/2022 3:25 PM EDT [facility] Anion Gap 9 7 - 16 mmol/L 07/22/2022 3:25 PM EDT [facility] Calcium 9.4 8.6 - 10.4 mg/dL 07/22/2022 3:25 PM EDT [facility] Glucose Lvl 127(H) 74 - 100 mg/dL 07/22/2022 3:25 PM EDT [facility] BUN 19 6 - 20 mg/dL 07/22/2022 3:25 PM EDT [facility] Creatinine 1.21 0.67 - 1.30 mg/dL 07/22/2022 3:25 PM EDT [facility] Albumin 4.9 3.5 - 5.2 gm/dL 07/22/2022 3:25 PM EDT [facility] Total Protein 7.3 6.4 - 8.3 gm/dL 07/22/2022 3:25 PM EDT [facility] Bili Total 0.7 0.1 - 1.4 mg/dL 07/22/2022 3:25 PM EDT [facility] ALT 26 <=41 U/L 07/22/2022 3:25 PM EDT [facility] AST 17 <=40 U/L 07/22/2022 3:25 PM EDT [facility] Alk Phos 45 40 - 129 U/L 07/22/2022 3:25 PM EDT [facility] eGFR (CKD-EPIcr 2020) 77 >=60 mL/min/1.7 3 m2 07/22/2022 3:25 PM EDT [facility] Comment:Estimated GFR was ca lculated using the CKD-EPIcr (2020) equation refit without race. The equation is recommended by the National Kidney Foundation - [place] Society of Nephrology Task Force. Blood VENOUS BLOOD / Unknown Venipuncture / Unknown 07/22/2022 1:17 PM EDT 07/22/2022 1:17 PM EDT us Unknown Provider CHEMISTRY ORDERABLES Final Resu Performing Organization Address [facility] de Phone Number [facility] [facility] [address] [facility] , [place] [phone] [facility] [address] [place], [place] [phone] * THYROID STIMULATING HORMONE (07/22/2022 1:17 PM EDT) Pathologist [facility] [place] TSH 2.520 0.270 - 4.200 mcIU/mL 07/22/2022 3:25 PM EDT [facility] [employer] Blood VENOUS BLOOD / Unknown Venipuncture / Unknown 07/22/2022 1:17 PM EDT 07/22/2022 1:17 PM EDT Narrative [facility] [employer] - 07/22/2022 3:25 PM EDT Ingestion of matthias doses of biotin (>5 mg/day) taken within 8 hours of drawing blood sample can interfere with this immunoassay test. us Unknown Provider CHEMISTRY ORDERABLES Final Resu Performing Organization Address [facility] de Phone Number [facility] [employer] [address] , [place] [address] * HEMOGLOBIN A1C (07/22/2022 1:17 PM EDT) Hgb A1C 5.5 4.2 - 5.6 % 07/22/2022 4:11 PM EDT [employer]. Avg Glucose 111 mg/dL 07/22/2022 4:11 PM EDT [facility] [employer], [employer] Blood VENOUS BLOOD / Unknown Venipuncture / Unknown 07/22/2022 1:17 PM EDT 07/22/2022 1:17 PM EDT Narrative [facility] - 07/22/2022 4:11 PM EDT REFERENCE RANGE: Normal: 4.0-5.6% Pre-diabetes: 5.7-6.4% Provisional diagnosis of diabetes: >6.4% Hgb F>10% and anything which shortens red cell survival, such as hemolytic anemia, or unstable hemoglobin variants such as HbSS, HbSC, or HbCC, will lower the HbA1c value associated with a given level of glycemic control. us Unknown Provider CHEMISTRY ORDERABLES Final Resu lt [facility] [address] [facility] , [address] [place] [phone] * (ABNORMAL) CBC WITH DIFF (07/22/2022 1:17 PM EDT) WBC 7.7 3.7 - 10.3 x10(3)/mcL 07/22/2022 3:05 PM EDT [facility] RBC 4.50(L) 4.60 - 6.10 x10(6)/mcL 07/22/2022 3:05 PM EDT [facility] Hgb 13.4(L) 13.7 - 17.5 g/dL 07/22/2022 3:05 PM EDT [facility] Hct 40.7 40.0 - 51.0 % 07/22/2022 3:05 PM EDT [facility] MCV 90.4 80.0 - 100.0 fL 07/22/2022 3:05 PM EDT [facility] MCH 29.8 26.0 - 34.0 pg 07/22/2022 3:05 PM EDT [facility] MCHC 32.9 30.7 - 35.5 g/dL 07/22/2022 3:05 PM EDT [facility] RDW 13.1 <=14.9 % 07/22/2022 3:05 PM EDT [facility] Platelet 199 155 - 369 x10(3)/mcL 07/22/2022 3:05 PM EDT [facility] MPV 10.4 8.8 - 12.5 fL 07/22/2022 3:05 PM EDT [facility] Neut Percent 77.5 % 07/22/2022 3:05 PM EDT [facility] Comment:Neutrophils equals s egs plus bands Imm Gran% 0.3 % 07/22/2022 3:05 PM EDT [facility] Comment:Automated count of m etamyelocytes, myelocytes and promyelocytes. Lymph Percent 18.1 % 07/22/2022 3:05 PM EDT [facility] [place] Percent 3.5 % 07/22/2022 3:05 PM EDT [facility] Eos Percent 0.1 % 07/22/2022 3:05 PM EDT [facility] Baso Percent 0.5 % 07/22/2022 3:05 PM EDT [facility] Neut # 5.9 1.6 - 6.1 x10(3)/mcL 07/22/2022 3:05 PM EDT [facility] Comment:Neutrophils equals s egs plus bands IMMGRAN# 0.0 0.0 - 0.1 x10(3)/mcL 07/22/2022 3:05 PM EDT [facility] Comment:Automated count of m etamyelocytes, myelocytes and promyelocytes. An absolute IG <0.1 is reported as 0.0. Lymph # 1.4 1.2 - 3.9 x10(3)/mcL 07/22/2022 3:05 PM EDT [facility] [place] # 0.3 0.3 - 0.9 x10(3)/[facility] 07/22/2022 3:05 PM EDT [facility] Eos# 0.0 0.0 - 0.5 x10(3)/mcL 07/22/2022 3:05 PM EDT [facility] Baso # 0.0 0.0 - 0.1 x10(3)/[facility] 07/22/2022 3:05 PM EDT [facility] Blood VENOUS BLOOD / Unknown Venipuncture / Unknown 07/22/2022 1:17 PM EDT 07/22/2022 1:17 PM EDT us Unknown Provider HEMATOLOGY ORDERABLES Final Res ult Performing Organization Address [facility] Co de Phone Number [facility] [address] [facility], [place] [address] * (ABNORMAL) LIPID PANEL REFLEX (07/22/2022 1:17 PM EDT) Cholesterol 192 <200 mg/dL 07/22/2022 3:25 PM EDT [facility], [employer] Comment: < 200 Desirable 200 - 239 Borderline High >= 240 High Triglyceride 154(H) <150 mg/dL 07/22/2022 3:25 PM EDT [facility] [employer] Comment: < 150 Normal 150 - 199 Borderline High 200 - 499 High >= 500 Very High HDL 53 >=40 mg/dL 07/22/2022 3:25 PM EDT [facility] [employer] Comment: > 60 Optimal 40 - 60 Acceptable < 40 Low LDL Calculated 112(H) <100 mg/dL 07/22/2022 3:25 PM EDT [facility] [employer] Non-HDL-C Calculated 139(H) <=129 mg/dL 07/22/2022 3:25 PM EDT [facility] [employer] Comment: <130 Desirable 130-159 Above Desirable 160-189 Borderline High 190-219 High >= 220 Very High Fasting Specimen? No None 023 3:25 PM EDT [facility] Blood VENOUS BLOOD / Unknown Venipuncture / Unknown 07/22/2022 1:17 PM EDT 07/22/2022 1:17 PM EDT us Unknown Provider CHEMISTRY ORDERABLES Final Resu lt Performing Organization Address City/[facility]/ZIP Co de Phone Number [facility], [facility] [address] [address] [facility] [address] [place] [address] documented in this encounter Visit Diagnoses Diagnosis Other snf (current) drug therapy documented in this encounter Orders Lab Orders Without Results Count Last Ordered D ate First Ordered Date HEPATIC FUNCTION PANEL 1 07/21/2022 documented in this encounter Care Teams Rn Forensic Relationship Specialty Start Date End Date Ji Martell [address] [place] [address] PCP - General Clinic/Center - [facility] ([facility] 01/20/16 Madhu Schaefer MD Internal Medicine-Gastroenterology 09/30/12 documented as of this encounter
--- OUTSIDE RECORDS SUMMARY | 2023-06-06 12:24 | XMS_ITS | Encounter Summary ---
Author Organization [place] [address] Care Team Providers Care Hospice Coordinator Name Role Phone Madhu Schaefer MD Unavailable [phone] [facility] Primary Care Provider [phone] Encounter Details Date Type Department Care Team (Latest Contact Info) Description 06/06/2023 11:24 AM [facility] Hospital Encounter [facility] Referral Lab [address] [place] [phone] [employer] Ware, ALYSIA [address] [place] [place] [phone] Other care home (current) drug therapy Social History Tobacco Use [...] on file Sexual Orientation Not on file documented as of this encounter Functional Status [...] Gonzalez RN * Does this person have serious [...] 1:59 PM EDT Libertad Mcdonnell RN * [place] Suicide Severity Rating Scale (Q shift for moderate and high) Question Answer Date of Assessment Author 1. In the past month, have y ou wished you were or wished you could go to sleep and not wake up? 0 07/07/2024 1:59 PM EDT Libertad Mcdonnell RN 2. In the past month, have y ou actually had any thoughts of killing yourself? (If no, skip to question 6) 0 07/07/2024 1:59 PM EDT Libertad Mcdonnell RN 6. Have you ever done anythi ng, started to do anything, or prepared to do anything to end your life? 0 07/07/2024 1:59 PM EDT Libertad Mcdonnell RN documented as of this [...] Pressure 125/79(2024 2:00 PM EDT) No Rain Jameson RN Maintain a healthy diet, exercise regularly and maintain an ideal body weight General No Rain Jameson RN Stay Tobacco Free Lifestyle No Rain Jameson RN documented as of this encounter Results * HIV AG/AB (06/08/2023 9:55 AM EST) [facility] HIV Ag/AB Non-Reactiv e Non-Reacti ve 06/08/2023 4:56 PM EST [employer] [facility] Blood VENOUS BLOOD / Unknown Venipuncture / Unknown 06/08/2023 9:55 AM EST 06/08/2023 9:55 AM EST Mitzy Ware NP IMMUNOLOGY ORDERABLES Final Result Performing Organization Address [facility] de Phone Number [facility] [employer] [address] , [place] [address] * HEPATITIS B SURFACE ANTIBODY (06/08/2023 9:55 AM EST) [facility] Hep Bs Ab 12.26 mIU/mL 06/08/2023 8:26 PM EST [employer] [facility] Comment: < 8.00 mIU/mL - NON REACTIVE (Not immune to HBV infection) 8.0 - 11.99 mIU/mL - GRAYZONE (Immune status should be further assessed by considering other factors such as clinical status, follow up testing, associated risk factors, and the use of additional diagnostic information.) >= 12.00 mIU/mL - REACTIVE (Immune to HBV infection.) Blood VENOUS BLOOD / Unknown Venipuncture / Unknown 06/08/2023 9:55 AM EST 06/08/2023 9:55 AM EST Mitzy Ware NP IMMUNOLOGY ORDERABLES Final Result Performing Organization Address [facility] Co de Phone Number [facility] [employer] , [place] [address] * (ABNORMAL) HCV ANTIBODY SCREEN W/ REFLEX (06/08/2023 9:55 AM EST) [facility] Hep C Ab Reactive(A ) Non-Reacti ve 06/08/2023 6:30 PM EST [employer] [facility] Comment: Antibodies to HCV detected. HCV RNA QUANT will be performed. Blood VENOUS BLOOD / Unknown Venipuncture / Unknown 06/08/2023 9:55 AM EST 06/08/2023 9:55 AM EST Mitzy Ware NP HEMATOLOGY ORDERABLES Final Result Performing Organization Address [facility] Co de Phone Number [facility] [employer], [address] , [place] [address] * HEMOGLOBIN A1C (06/08/2023 9:55 AM EST) Hgb A1C 4.6 4.2 - 5.6 % 06/08/2023 4:24 PM EST [facility] Est. Avg Glucose 85 mg/dL 06/08/2023 4:24 PM EST [facility], [facility] Blood VENOUS BLOOD / Unknown Venipuncture / Unknown 06/08/2023 9:55 AM EST 06/08/2023 9:55 AM EST Narrative [facility] [employer], [facility] - 06/08/2023 4:24 PM EST REFERENCE RANGE: Normal: 4.0-5.6% Pre-diabetes: 5.7-6.4% Provisional diagnosis of diabetes: >6.4% Hgb F>10% and anything which shortens red cell survival, such as hemolytic anemia, or unstable hemoglobin variants such as HbSS, HbSC, or HbCC, will lower the HbA1c value associated with a given level of glycemic control. Mitzy Ware NP CHEMISTRY ORDERABLES Final R esult Performing Organization Address [facility] Co de Phone Number [facility] [employer], [facility] [address] [facility] , [place] [address] * (ABNORMAL) CBC WITH DIFF (06/08/2023 9:55 AM EST) WBC 6.3 3.7 - 10.3 x10(3)/mcL 06/08/2023 3:58 PM EST [facility], [facility] RBC 4.54(L) 4.60 - 6.10 x10(6)/mcL 06/08/2023 3:58 PM EST [facility] Hgb 13.4(L) 13.7 - 17.5 g/dL 06/08/2023 3:58 PM EST [facility] Hct 40.0 40.0 - 51.0 % 06/08/2023 3:58 PM EST [facility] MCV 88.1 80.0 - 100.0 fL 06/08/2023 3:58 PM EST [facility] MCH 29.5 26.0 - 34.0 pg 06/08/2023 3:58 PM EST [facility], [facility] MCHC 33.5 30.7 - 35.5 g/dL 06/08/2023 3:58 PM EST [facility] RDW 12.3 <=14.9 % 06/08/2023 3:58 PM EST [facility], [facility] Platelet 247 155 - 369 x10(3)/mcL 06/08/2023 3:58 PM EST [facility], [facility] MPV 10.7 8.8 - 12.5 fL 06/08/2023 3:58 PM EST [facility], [facility] Neut Percent 52.6 % 06/08/2023 3:58 PM EST [facility] Comment:Neutrophils equals s egs plus bands Imm Gran% 0.2 % 06/08/2023 3:58 PM EST [facility] Comment:Automated count of m etamyelocytes, myelocytes and promyelocytes. Lymph Percent 39.0 % 06/08/2023 3:58 PM EST [facility] [place] Percent 6.6 % 06/08/2023 3:58 PM EST [facility] Eos Percent 1.0 % 06/08/2023 3:58 PM EST [facility] Baso Percent 0.6 % 06/08/2023 3:58 PM EST [facility] Neut # 3.3 1.6 - 6.1 x10(3)/mcL 06/08/2023 3:58 PM EST [facility] Comment:Neutrophils equals s egs plus bands IMMGRAN# 0.0 0.0 - 0.1 x10(3)/mcL 06/08/2023 3:58 PM EST [facility] Comment:Automated count of m etamyelocytes, myelocytes and promyelocytes. An absolute IG <0.1 is reported as 0.0. Lymph # 2.4 1.2 - 3.9 x10(3)/mcL 06/08/2023 3:58 PM EST [facility], [facility] [place] # 0.4 0.3 - 0.9 x10(3)/mcL 06/08/2023 3:58 PM EST [facility], [facility] Eos# 0.1 0.0 - 0.5 x10(3)/mcL 06/08/2023 3:58 PM EST [facility], [facility] Baso # 0.0 0.0 - 0.1 x10(3)/mcL 06/08/2023 3:58 PM EST [facility], [facility] Blood VENOUS BLOOD / Unknown Venipuncture / Unknown 06/08/2023 9:55 AM EST 06/08/2023 9:55 AM EST Mitzy Ware NP HEMATOLOGY ORDERABLES Final Result [facility], [facility] [address] [facility], [place] [address] * LIPID PANEL REFLEX (06/08/2023 9:55 AM EST) Cholesterol 159 <200 mg/dL 06/08/2023 5:01 PM EST [facility], [facility] Comment: < 200 Desirable 200 - 239 Borderline High >= 240 High Triglyceride 77 <150 mg/dL 06/08/2023 5:01 PM EST [facility] Comment: < 150 Normal 150 - 199 Borderline High 200 - 499 High >= 500 Very High HDL 55 >=40 mg/dL 06/08/2023 5:01 PM EST [facility] Comment: > 60 Optimal 40 - 60 Acceptable < 40 Low LDL Calculated 89 <100 mg/dL 06/08/2023 5:01 PM EST [facility], [facility] Non-HDL-C Calculated 104 <=129 mg/dL 06/08/2023 5:01 PM EST [facility], [facility] Comment: <130 Desirable 130-159 Above Desirable 160-189 Borderline High 190-219 High >= 220 Very High Fasting Specimen? Yes None 024 5:01 PM EST [facility] Blood VENOUS BLOOD / Unknown Venipuncture / Unknown 06/08/2023 9:55 AM EST 06/08/2023 9:55 AM EST Mitzy Ware NP CHEMISTRY ORDERABLES Final R esult [facility] [address] [facility] , [place] [address] [facility] [address] [place] [address] * COMPREHENSIVE METABOLIC PANEL (06/08/2023 9:55 AM EST) Sodium 139 136 - 145 mmol/L 06/08/2023 5:01 PM EST [facility] Potassium 4.4 3.5 - 5.0 mmol/L 06/08/2023 5:01 PM EST [facility] Chloride 102 98 - 107 mmol/L 06/08/2023 5:01 PM EST [facility] Total CO2 27 22 - 29 mmol/L 06/08/2023 5:01 PM EST [facility] Anion Gap 10 7 - 16 mmol/L 06/08/2023 5:01 PM EST [facility] Calcium 9.6 8.6 - 10.4 mg/dL 06/08/2023 5:01 PM EST [facility] Glucose Lvl 87 70 - 99 mg/dL 06/08/2023 5:01 PM EST [facility] BUN 11 6 - 20 mg/dL 06/08/2023 5:01 PM EST [facility] Creatinine 0.98 0.67 - 1.30 mg/dL 06/08/2023 5:01 PM EST [facility] Albumin 4.5 3.5 - 5.2 gm/dL 06/08/2023 5:01 PM EST [facility] Total Protein 7.5 6.4 - 8.3 gm/dL 06/08/2023 5:01 PM EST [facility] Bili Total 0.4 0.2 - 1.4 mg/dL 06/08/2023 5:01 PM EST [facility] ALT 14 <=41 U/L 06/08/2023 5:01 PM EST [facility] AST 20 <=40 U/L 06/08/2023 5:01 PM EST [facility] Alk Phos 56 40 - 129 U/L 06/08/2023 5:01 PM EST [facility] [employer], [facility] eGFR (CKD-EPIcr 2020) 99 >=60 mL/min/1.7 3 m2 06/08/2023 5:01 PM EST [facility] Comment:Estimated GFR was ca lculated using the CKD-EPIcr (2020) equation refit without race. The equation is recommended by the National Kidney Foundation - [place] [employer] of Nephrology Task Force. Blood VENOUS BLOOD / Unknown Venipuncture / Unknown 06/08/2023 9:55 AM EST 06/08/2023 9:55 AM EST Mitzy Ware [employer] CHEMISTRY ORDERABLES Final R esult Performing Organization Address [facility] de Phone Number [facility] [employer] [place] [phone] [facility] [address] [place] [address] * THYROID STIMULATING HORMONE (06/08/2023 9:55 AM EST) TSH 2.040 0.270 - 4.200 mcIU/mL 06/08/2023 5:01 PM EST [facility] [employer] [facility] Blood VENOUS BLOOD / Unknown Venipuncture / Unknown 06/08/2023 9:55 AM EST 06/08/2023 9:55 AM EST Narrative [facility] [employer] [facility] - 06/08/2023 5:01 PM EST Ingestion of matthias doses of biotin (>5 mg/day) taken within 8 hours of drawing blood sample can interfere with this immunoassay test. Mitzy Ware [employer] CHEMISTRY ORDERABLES Final R esult Performing Organization Address [facility] Co de Phone Number [facility] [employer] [facility] [address] [facility] , [place] [address] documented in this encounter Visit Diagnoses Diagnosis Other care home (current) drug therapy documented in this encounter Orders Lab Orders Without Results Count Last Ordered D ate First Ordered Date HEPATIC FUNCTION PANEL 1 06/06/2023 documented in this encounter Care Teams Hospice Coordinator Relationship Specialty Start Date End Date Ji Martell [address] [place] [address] PCP - General Clinic/Center - [facility] ([facility]) 01/20/16 Madhu Schaefer MD Internal Medicine-Gastroenterology 09/30/12 documented as of this encounter
[2025-02-03 19:38] LABS: Hematocrit 38.8 % (42.0-52.0); Hemoglobin 13.1 g/dL (14.1-18.0); Immature Granulocytes % 0.2 %; Mean Corpuscular HGB Conc 33.8 g/dL (31.8-35.4); Mean Corpuscular Hemoglobin 29.0 pg (27.0-31.2); Mean Corpuscular Volume 85.8 fl (80-94); Nucleated Red Blood Cells % 0 %; Platelet Count 204 K/mm3 (142-424); Red Blood Count 4.52 M/mm3 (4.60-6.20); Red Cell Distribution Width-SD 39.5 fL; White Blood Count 5.9 K/mm3 (4.8-10.8)
[2025-02-03 20:09] LABS: Alanine Aminotransferase 20 U/L (12-78); Albumin Level 4.4 g/dl (3.5-5.0); Albumin/Globulin Ratio 1.8 (1.1-1.8); Alkaline Phosphatase 71 U/L (38-126); Anion Gap 16.1 mEq/L (5-15); Aspartate Amino Transferase 25 U/L (17-59); Bilirubin,Total 0.6 mg/dl (0.2-1.3); Blood Urea Nitrogen 10 mg/dl (9-20); Calcium 9.2 mg/dl (8.4-10.2); Carbon Dioxide 29 mmol/L (22.0-30.0); Chloride 97 mmol/L (98-107); Creatinine,Serum 0.70 mg/dl (0.66-1.25); Estimated Glomerular Filt Rate 123 ml/min (>60); GFR (African American) 148 ML/MIN (>60); Globulin 2.5 g/dL (1.3-3.2); Glucose 55 mg/dl (74-100); Potassium 4.1 mmoL/L (3.5-5.1); Sodium 138 mmol/L (136-145); Total Protein,Serum 6.9 g/dl (6.3-8.2); Uric Acid 6.4 mg/dl (3.5-8.5)
[2025-02-03 20:25] LABS: Hemoglobin A1C 5.1 % (4.0-6.0)
[2025-02-03 20:39] LABS: Prostate Specific Ag, Diagnost 0.247 ng/ml (0.0-4.0); Thyroid Stimulating Hormone 3.21 uIU/mL (0.465-4.68)
[2025-02-03 20:58] LABS: Vitamin B12 495 pg/mL (239-931)
--- OUTSIDE RECORDS SUMMARY | 2025-02-03 22:36 | XMS_ITS | Clinical Summary ---
Author Organization [facility] Address [address] [place] [address] Phone Care Team Providers Care Mandrel Maker Name Role Phone Madhu Schaefer MD Unavailable [phone] [facility] Primary Care Provider [phone] Allergies Active Allergy Reactions Criticality Noted Date Comments Amoxicillin Hives Medium 10/04/2009 Penicillin Hives High 11/11/2020 Vit E-Nonoxynol 9-Aloe Vera Itching Medium 10/05/19 11 Medications * This document contains information received from the source organization and may not represent a complete record from that organization. VENTOLIN HFA 90 mcg/actuation Inhl HFA Aerosol Inhaler Inhale 2 Puffs into the lungs every 4 hours as needed. 1 06/11/2018 Active divalproex (DEPAKOTE) 125 mg Oral Tablet, Delayed Release (E.C.) Take 2 Tabs by mouth every 12 hours. Active traZODone (DESYREL) 100 mg Oral Tablet TAKE 1/2 TO ONE WHOLE TABLET NEEDED ONCE DAILY AT BEDTIME FOR INSOMNIA 07/04/2019 Active paliperidone (INVEGA) 6 mg Oral Tablet Extended Rel 24 hr Take 6 mg by mouth daily. 06/25/2019 Active fluticasone propionate (FLONASE) 50 mcg/actuation Nasl [place], SuspensionIndic ations:Acute maxillary sinusitis, recurrence not specified One spray in each nostril every 12 hours for three days. Then stop for two days. May repeat cycle as needed. 1 Bottle 11/21/2019 Active fexofenadine-ps eudoephedrine (ZANDER-D 24) 180-240 mg Oral Tablet Sustained Release 24 hr Take 1 Tab by mouth daily. 30 Tab 11/21/2019 Active venlafaxine (EFFEXOR) 75 mg Oral Tablet Take 75 mg by mouth daily (with breakfast). 10/22/2020 Active Active Problems Problem Noted Date Diagnosed Date Gallstones 12/17/2018 Overview (12/17/2018): Added automatically from request for surgery [id number] Calculus of gallbladder with acute cholecystitis without obstruction 12/17/2018 Seizure disorder 09/19/2012 Hx of hepatitis C 10/04/2010 Assessment & Plan (06/03/2019 11:36 AM EST): History of genotype 1, previously treated. 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 Completed 12 wk course Mavyret Feb 2019 with undetected 12 week post completion SVR Anxiety 10/04/2009 Hyperlipidemia 10/04/2009 Depression 10/04/2009 Immunizations Immunization Administration Dates Next Due Hepatitis A, Unspecified Formulation 08/12/2012, 11/10/2010 Hepatitis B, Unspecified Formulation 08/12/2012, 12/08/2010,11/10/2010 Td, Unspecified Formulation 11/10/2010 Tdap 04/21/2023, 5,01/28/2014,2010 Surgical History Surgery Date Site/Laterality Comments FRACTURE SURGERY right wrist APPENDECTOMY childhood CHOLECYSTECTOMY, LAPAROSCOPIC 12/18/2018 N/A Laparoscopic cholecystectomy ; Surgeon: Dc Shirley MD; Location: [facility]; Service: General Medical History Medical History Date Comments Anxiety Depression Hypertension Seizures (HCC) Hepatitis C 10/04/2010 Family History Medical History Relation Name Comments Cancer Father Cancer Maternal Grandmother pancrea tic Relation Name Status Comments Father Alive Maternal Grandmother Alive Mother Alive Social History Tobacco Use Types Packs/Day Years [...] on file Sexual Orientation Not on file Last Filed Vital Signs Vital Sign Reading Time Taken Comments Blood Pressure 125/79 07/07/2024 2:00 PM EDT Pulse 66 07/07/2024 3:52 PM EDT Temperature 37.1 C (98.7 F) 07/07/2024 1:58 PM EDT Respiratory Rate 21 07/07/2024 1:58 PM EDT Oxygen Saturation 99% 07/07/2024 3:51 PM EDT Inhaled Oxygen Concentration - - Weight 90.7 kg (200 lb) 04/21/2023 10:36 PM EST Height 185.4 cm (6' 1 ) 11/11/2020 12:00 PM EDT Body Mass Index 26.39 11/11/2020 12:00 PM EDT Plan of Treatment Health Maintenance Due Date Last Done Comments Annual Wellness Exam 07/07/1983 COVID-19 Vaccine ( season) 2024 03/13/2022, 01/09/2022, 12/12/2021 Influenza Vaccine (#1) 2024 , 04/02/2023, 02/20/2022, Additional history exists DTaP/TDaP/Td (6 - Td or Tdap) 04/21/2033 04/21/2023, 02/14/2015, 11/25/2014, Additional history exists Hepatitis B Vaccine Completed 08/12/2012, 12/08/2010, 11/10/2010 Meningococcal B Vaccine Aged Out No l onger eligible based on patient's age to complete this topic Pneumococcal Vaccine 0-49 Aged Out No longer eligible based on patient's age to complete this topic Goals Goal Patient Goal Type Associated Problems Recent Progress Patient-Stated? Author Blood Pressure < 140/90 Blood Pressure 125/79(2024 2:00 PM EDT) No Rain Jameson, CARLEE Maintain a healthy diet, exercise regularly and maintain an ideal body weight General No Rain Jameson, CARLEE Stay Tobacco Free Lifestyle No Rain Jameson, CARLEE Insurance [employer] [place] [address] MDR [employer] [place] [address] [employer] [place] [address] MDR [employer] Advance Directives For more information, please contact: [phone] * Full Code (Latest Code Status on File) Date Activated Date Inactivated Comments 12/19/2018 12:02 PM 12/19/2018 6:09 PM Care Teams Mandrel Maker Relationship Specialty Start Date End Date Ji Mart[address] [place] [id number] PCP - General Clinic/Center - [facility] ([facility]) 01/20/16 Madhu Schaefer MD Internal Medicine-Gastroenterology 09/30/12
[2025-02-05 11:20] LABS: RA Latex Turbid. <10.0 IU/mL (<14.0)
[2025-02-05 18:52] LABS: Antinuclear Antibodies, IFA Negative (.)
== END 2025-02-03 23:59 | disposition home or self-care (01) ==
LOC: LAB.DROPOF 22:33
PROVIDERS: PCP Nurse Practitioner; Visit Provider Nurse Practitioner
DX: R20.2 Paresthesia of skin (principal); I10 Essential (primary) hypertension; R35.89 Other polyuria; R42 Dizziness and giddiness
CPT/HCPCS: 80053; 82043; 82570; 82607; 83036; 84153; 84443; 84550; 85025; 85651; 86038; 86225; 86235; 86431